=== PATIENT | female | born 1980 | race Hispanic/Latino ===

== ENCOUNTER 2020-07-22 07:53 | Inpatient (IN) | payer OTHER ==
--- NOTE | 2020-07-22 08:29 | History and Physical Report ---
History of Present Illness Date of examination: 07/22/20 (Presented to triage complete!) Date of admission: 07/22/2020 Chief complaint: Contractions started this AM around 4 or 5am. Started leaking fluid History of present illness: Pt presented to labor and delivery completely dilated. EDC Confirmation: 07/13/2020 Gestational Age: 41.3 wks on admission Past History : 6 Term Births: 4 Premature Births: 0 Living Children: 4 Para: 4 Mult. Births: 0 Prev : 0 Prev. attempt? 0 Aborta: 1 Elect. Ab: 0 Spont. Ab: 1 Ectopics: 0 # 1 Delivery date: 2012 Weeks Gestation: term Delivery type: Anesthesia type: none Delivery location: [place], [place] Sex: Female weight: 8-8 # 2 Delivery date: 2013 Weeks Gestation: 7 Delivery type: SAB Delivery location: [place], [place] Comments: denies complication expectant mgt # 3 Delivery date: 2015 Weeks Gestation: term Delivery type: Anesthesia type: none Delivery location: [place], [place] Infant Sex: Female weight: 8-15 # 4 Delivery date: 2017 Weeks Gestation: term Delivery type: Anesthesia type: none Delivery location: [place], [place] Sex: Male weight: 8-12 Comments: shoulder dystocia; no NB damage; extensive laceration pt # 5 Delivery date: 2019 Weeks Gestation: term Delivery type: Anesthesia type: none Delivery location: [place], [place] Sex: Male weight: 7-7 Comments: only IOL, 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 had hyst after she delivered pt. ??timing?? Social Hx: Patient is Smoking History: Patient has never smoked. Infection History Hx of STD: none HIV Risk Eval: no Hepatitis B Risk Eval: low risk Personal hx. of genital herpes: no Partner hx. of genital herpes: no Varicella/Chicken Pox Status: Unknown TB Risk: no Infection History Comments: shingles as a teen Genetic History ADVANCED MATERNAL AGE Congenital Heart Defect: Mom: no Dad: no Mello Disease: Mom: no Dad: no Thalassemia Mom: no Dad: no Neural Tube Defect Mom: no Dad: no Down's Syndrome Mom: no Dad: no Edgar-Sachs Mom: no Dad: no Sickle Cell Disease/Trait Mom: no Dad: no Hemophilia Mom: no Dad: no Muscular Dystrophy Mom: no Dad: no Cystic Fibrosis Mom: no Dad: no Marcin Chorea Mom: no Dad: no Mental Retardation Mom: no Dad: no Fragile X Mom: no Dad: no Other Genetic/Chromosomal Disorder Mom: no Dad: no Child w/other defect Mom: no Dad: no Enviromental Exposures Xray Exposure: no Medication, drug, or alcohol use since LMP: no Chemical/Other Exposure: no Exposure to Cat Liter: no Hx of Parvovirus (Fifth Disease): no Occupational Exposure to Children: none Current Allergies (reviewed today): No known allergies Past History Past Medical History: no pertinent history Past Surgical History: no surgical history Family/Genetic History: none Social history: no significant social history, - Obstetrical History Expected Date of Delivery: 07/13/20 Actual Gestation: 41 Week(s) 3 Day(s) : 6 Para: 4 Hx # Term Pregnancies: 4 Number of Pregnancies: 0 Spontaneous Abortions: 1 Induced : 0 Number of Living Children: 4 Medications and Allergies Allergies Allergy/AdvReac Type Severity Reaction Status Date / Time No Known Allergies Allergy Verified 07/22/20 10:21 Home Medications Medication Instructions Recorded Confirmed Last Taken Type Ibuprofen [Motrin] 800 mg PO Q8HR PRN #30 tablet 07/22/20 Unknown Rx Lidocain2.5%/Prilocai2.5% [Emla] 1 applic TP ONCE #1 tube 07/22/20 Unknown Rx Review of Systems All systems: negative - Vital Signs Vital signs: Vital Signs Pulse BP 81 118/64 07/22/20 08:19 07/22/20 08:19 Temp Pulse Resp BP Pulse Ox 84 118/64 98 07/22/20 08:26 07/22/20 08:19 07/22/20 08:26 - Physical Exam Breasts: Positive: deferred Cardiovascular: Regular rate Lungs: Positive: Normal air movement Abdomen: Positive: soft Genitourinary (Female): Positive: normal external genitalia, normal perenium Vagina: Positive: normal moisture Uterus: Positive: normal size Extremities: Negative: normal Deep Tendon Reflex Grade: Normal +2 - Obstetrical FHR: auscultation normal Cervical Dilatation: 10 Cervical Effacement Percentage: 100 station: +2 Uterine Contraction Pattern: Regular Uterine Tone Measurement Phase: Resting Uterine Contraction Intensity: Moderate Results Result Diagrams: 07/22/20 19:49 All other labs normal. GBS NEGATIVE HBsAg Screen Negative Negative *1 RPR Non Reactive Non Reactive *2 Rubella Antibodies, IgG [L] <0.90 index Immune >0.99 *3 Non-immune <0.90 Equivocal 0.90 - 0.99 Immune >0.99 ABO Grouping O *4 Rh Factor Positive *5 Please note: Prior records for this patient's ABO / Rh type are not available for additional verification. Antibody Screen Negative Negative *6 Tests: (4) HIV Ag/Ab with Reflex ([id number]) HIV Screen 4th Generation wRfx Non Reactive Non Reactive *33 Tests: (5) HCV Ab w/Rflx to Verification ([id number]) ! HCV Ab <0.1 s/co ratio 0.0-0.9 *34 Tests: (6) Comment: ([id number]) ! Comment: [facility] *35 Non reactive HCV antibody screen is consistent with no HCV infection, unless recent infection is suspected or other evidence exists to indicate HCV infection. Assessment and Plan A: 39 y.o. @ 41.3 wks in active labor. Cervical exam 10100/+2. - Patient Problems (1) with 41 completed weeks gestation Onset Date: ~07/19/20 Current Visit: Yes Status: Acute Plan to address problem: Admit to labor and delivery. Start IV. IV pain medication as needed. Anticipate . (2) Rubella nonimmune status, delivered, current hospitalization Current Visit: Yes Status: Acute Plan to address problem: Will receive vaccine during the period.
[2020-07-22] MEDS ORDERED: LACTATED RINGERS 1,000 ML IV SCH (08:30)
[2020-07-22] MEDS ORDERED: TERBUTALINE 1 MG/1 ML INJ SUB-Q PRN (08:30)
[2020-07-22] MEDS ORDERED: ePHEDrine SULFATE 50 MG/1 ML INJ IV PRN (08:30)
[2020-07-22] MEDS ORDERED: ACETAMINOPHEN 325 MG TAB PO PRN ×2 (08:30→08:38)
[2020-07-22] MEDS ORDERED: MINERAL OIL 30 ML ORAL LIQD PO PRN (08:30)
[2020-07-22] MEDS ORDERED: OXYTOCIN 10 UNIT/1 ML INJ IM ONE (08:34)
--- NOTE | 2020-07-22 08:36 | Procedure Note ---
OB Delivery Note - Delivery Date of Delivery: 07/22/20 Lobster Catcher: RADHA HERNANDEZ Estimated blood loss: 300cc - Vaginal Delivery presentation: vertex Delivery position: OA Intrapartum events: precipitous labor- <3hr Delivery induction: none Delivery monitor: external FHT Route of delivery: Delivery placenta: spontaneous Delivery cord: 3 umbilical vessels Episiotomy: none Delivery laceration: none, other (Perineal abrasion noted.) Anesthesia: none Delivery comments: of viable male infant over intact perineum. Infant to mothers chest for s kin to skin. Cord cut and clamped by FOC after cessation of pulse. Spontaneous delivery of placenta, intact, complete, 3 vessels noted. Perineum and vagina inspected, small abrasion noted. No repair needed. Apgars 8,9. Infant weight 7- 15. EBL 300ml. Mother and left in care of RN in stable condition. Sponges and instruments counted with RN and correct X2./ - Infant A at 1 minute: 8 at 5 minutes: 9 Infant Gender: Male (Dimitri, 7-15)
[2020-07-22] MEDS ORDERED: MAGNESIUM HYDROXIDE (MOM) ORAL LIQD UDC PO PRN (08:38)
[2020-07-22] MEDS ORDERED: ONDANSETRON 4 MG/2 ML INJ IV PRN (08:38)
[2020-07-22] MEDS ORDERED: WITCH HAZEL/ GLYCERIN PAD TP PRN (08:38)
[2020-07-22] MEDS ORDERED: diphenhydrAMINE 25 MG CAP PO PRN (08:38)
[2020-07-22] MEDS ORDERED: LANOLIN/ZINC/DIMETHICONE (LANSINOH) 7 GM TP PRN ×2 (08:38)
[2020-07-22] MEDS ORDERED: METHYLERGONOVINE MALEATE 0.2 MG/ML VIAL IM PRN (08:38)
[2020-07-22] MEDS ORDERED: LOPERAMIDE 2 MG CAP PO PRN (08:38)
[2020-07-22] MEDS ORDERED: BENZOCAINE/MENTHOL 20/0.5% TOP SPRAY 56 GM TP PRN (08:38)
[2020-07-22] MEDS ORDERED: PROMETHAZINE 25 MG TAB PO PRN (08:38)
[2020-07-22] MEDS ORDERED: miSOPROStol 100 MCG TAB PR PRN (08:38)
[2020-07-22] MEDS ORDERED: CARBOPROST TROMETHAMINE 250 MCG/1 ML INJ IM PRN (08:38)
[2020-07-22] MEDS ORDERED: OXYTOCIN DRIP 30 UNITS/500 ML BAG IV SCH ×2 (09:00)
[2020-07-22 09:46] LABS: Hematocrit 31.2 % (30.3-42.9); Hemoglobin 10.6 gm/dl (10.1-14.3); Mean Corpuscular HGB Conc 34 % (30-34); Mean Corpuscular Volume 84 fl (79-97); Platelet Count 229 K/mm3 (140-440); Red Cell Distribution Width 15.9 % (13.2-15.2)
[2020-07-22] MEDS: PRENATAL VIT27-FE FUMARATE-FOLIC ACID VIT TAB PO SCH (12:05)
[2020-07-22] MEDS: IBUPROFEN 800 MG TAB PO SCH ×3 (12:05→21:00)
[2020-07-22] MEDS: DOCUSATE SODIUM 100 MG CAP PO SCH (12:05)
[2020-07-22 20:12] LABS: Hematocrit 29.4 % (30.3-42.9)
[2020-07-23] MEDS: DOCUSATE SODIUM 100 MG CAP PO SCH ×3 (00:13→21:00)
[2020-07-23] MEDS: IBUPROFEN 800 MG TAB PO SCH ×4 (03:00→21:00)
[2020-07-23] MEDS ORDERED: TETANUS,DIPH,PERTUSS(ACELL) VACCINE 0.5 ML SYRINGE IM ONE (08:39)
[2020-07-23] MEDS ORDERED: MEASLES, MUMPS & RUBELLA 12,500 UNIT/0.5 ML VACCINE SUB-Q ONE (08:48)
[2020-07-23] MEDS: PRENATAL VIT27-FE FUMARATE-FOLIC ACID VIT TAB PO SCH (10:07)
--- NOTE | 2020-07-23 12:57 | Discharge Summary ---
Providers - Providers Date of Admission: 07/22/20 07:54 Date of discharge: 07/23/20 Attending physician: SCARLET LOONEY Primary care physician: SCARLET LOONEY Hospitalization Reason for admission: Labor Condition: Good Pertinent studies: H&H 10 & 29.4 Procedures: precip Hospital course: uncomplicated and course Disposition: DC-01 TO HOME OR SELFCARE Final Discharge Diagnosis (Prints w/discharge instructions): normal vaginal Time spent for discharge: 20 - Discharge Diagnoses (1) Spontaneous vaginal delivery Status: Acute Core Measure Documentation - Palliative Care Palliative Care/ Comfort Measures: Not Applicable - Core Measures Any of the following diagnoses?: none Exam - Constitutional Vitals: Temp Pulse Resp BP Pulse Ox 97.9 F 80 18 106/65 97 07/23/20 09:15 07/23/20 09:15 07/23/20 09:15 07/23/20 09:15 07/23/20 09:15 General appearance: Present: no acute distress, well-nourished - EENT Eyes: Present: PERRL ENT: hearing intact, clear oral mucosa - Neck Neck: Present: supple, normal ROM - Respiratory Respiratory effort: normal Respiratory: bilateral: CTA - Cardiovascular Rhythm: regular Heart Sounds: Absent: rub, click - Extremities Extremities: No edema Peripheral Pulses: within normal limits - Abdominal General gastrointestinal: Present: soft, non-tender, non-distended, normal bowel sounds Female genitourinary: Present: normal - Integumentary Integumentary: Present: clear, warm, dry - Musculoskeletal Musculoskeletal: gait normal, strength equal bilaterally - Psychiatric Psychiatric: appropriate mood/affect, intact judgment & insight - Neurologic Neurologic: CNII-XII intact, moves all extremities - Additional findings Additional findings: Lochia scant, fundus firm, well Plan Activity: no restrictions Diet: regular Follow up with: SCARLET LOONEY MD [Primary Care Provider] - 7 Days (Congratulations! Please call [phone] to schedule your son's circumcision in 1 week and your visit in 4 weeks. Bring EMLA cream to your son's visit and wait for further teaching. Call with any questions or concerns.) Forms: [facility] Discharge Summary Prescriptions: Lidocain2.5%/Prilocai2.5% [Emla] 1 applic TP ONCE #1 tube Ibuprofen [Motrin] 800 mg PO Q8HR PRN #30 tablet PRN Reason: Pain, Moderate (4-6)
[2020-07-24] MEDS: IBUPROFEN 800 MG TAB PO SCH ×2 (10:37→10:38)
[2020-07-24] MEDS: PRENATAL VIT27-FE FUMARATE-FOLIC ACID VIT TAB PO SCH (10:38)
[2020-07-24] MEDS: DOCUSATE SODIUM 100 MG CAP PO SCH (10:38)
[2020-07-24 12:40] VITALS: BP 121/69
== END 2020-07-24 12:40 | disposition home or self-care (01) | DRG 807 ==
LOC: LD 07:53 → TRG 07:53 → LD 07:54 → APU 07:56 → TRG 08:45 → OB 10:28
PROVIDERS: ADMIT Obstetrics & Gynecology; ATTEND Obstetrics & Gynecology
PROC: 10E0XZZ Delivery of Products of Conception, External Approach (ICD-10-PCS; principal; 2020-07-22)
PROC: 3E0234Z Introduction of Serum, Toxoid and Vaccine into Muscle, Percutaneous Approach (ICD-10-PCS; 2020-07-22)
PROC: 3E0134Z Introduction of Serum, Toxoid and Vaccine into Subcutaneous Tissue, Percutaneous Approach (ICD-10-PCS; 2020-07-22)
DX: O62.3 Precipitate labor (principal); Z37.0 Single live birth; Z20.822 Contact with and (suspected) exposure to COVID-19; Z3A.41 41 weeks gestation of pregnancy; Z23 Encounter for immunization; Z79.899 Other long term (current) drug therapy; O71.82 Other specified trauma to perineum and vulva
CPT/HCPCS: 36415; 85014; 85018; 85027; 86592; 86850; 86900; 86901; G0378; J2590; U0003